=== PATIENT | female | born 1980 | race Hispanic/Latino ===

== ENCOUNTER 2025-03-18 17:14 | Emergency (ER) | payer SELFPAY ==
--- NOTE | ~2025-03-18 | CT_ITS ---
CT abdomen pelvis w con INDICATION:RUQ pain . COMPARISON: None. TECHNIQUE: Axial images of the abdomen and pelvis were obtained following infusion of 100 mL Isovue 300. Dose optimization technique was utilized. FINDINGS: The lung bases are clear. The liver parenchyma is unremarkable. No intrahepatic mass or ductal dilatation is evident. Gallbladder is filled with stones. There is a stone within the distal common bowel duct. The pancreas and spleen are normal in appearance. The adrenal glands are symmetric in size. The kidneys demonstrate symmetric uptake and excretion of contrast. No cystic mass is evident. There is no solid mass. There is no hydronephrosis. Evaluation of the stomach and bowel loops are limited due to lack of oral contrast. There are no bowel obstruction. The appendix is normal in appearance. There is colonic diverticulosis without evidence of acute diverticulitis. The bladder and rectum are normal. No free intraperitoneal fluid or air is evident. There is no significant retroperitoneal lymphadenopathy. The aorta, visceral vessels and renal arteries demonstrate normal caliber and patency. The lower thoracic and lumbar vertebrae are in normal alignment. IMPRESSION: Cholelithiasis and choledocholithiasis. Colonic diverticulosis without evidence of acute diverticulitis. All CT scans at this facility are performed using low dose modulation techniques as appropriate to perform exam including the following: automated exposure control; use of iterative reconstruction technique; adjustment of the mA and/or kV according to patient size (this includes techniques or standardized protocols for targeted exams where dose is matched to indication/reason for exam). Reviewed, dictated and finalized at location [facility] IMPRESSION: Cholelithiasis and choledocholithiasis. Colonic diverticulosis without evidence of acute diverticulitis. All CT scans at this facility are performed using low dose modulation techniqu es as appropriate to perform exam including the following: automated exposure c ontrol; use of iterative reconstruction technique; adjustment of the mA and/or kV according to patient size (this includes techniques or standardized protocol s for targeted exams where dose is matched to indication/reason for exam).
[2025-03-18 17:15] VITALS: BP 136/88; PULSE 98; RESP 16; TEMP 36.4; O2SAT 99
--- OUTSIDE RECORDS SUMMARY | 2025-03-18 18:18 | XMS_ITS | Clinical Summary ---
Author Organization [facility] Address [address] [place] [address] Care Team Providers Care Licensed Guide Name Role Phone Brenden Chacon MD Primary Care Provider [phone] Source Comments [facility],non-owned Affiliates and Associated Physician Practices is amultiple site organization consisting of ambulatory clinics and hospital sitesin [place], [place], [place] and [place]. This disclosure is being madepursuant to the Care Everywhere program and may not contain all information available regarding this patient. Last updated 17.[facility] Allergies No known active allergies Medications * This document contains information received from the source organization and may not represent a complete record from that organization. * Be aware that medications may not be up to date on this document. Alwaysverify current medications with the patient. blood glucose (ONETOUCH VERIO) test strip Use 1 strip 5 times daily Dx code: 024.419. Will submit PA for additional supplies. 150 strip 2 9 Active Vit-Fe Fumarate-FA ( VITAMIN WITH IRON) tabletIndicati ons: Take 1 tablet by mouth once daily Reasons: Active aspirin EC (ECOTRIN) 81 MG tabletIndicati ons:Preeclamps ia Take 81 mg by mouth once daily Reasons: Increased Blood Pressure and Edema During Active cyanocobalamin (VITAMIN B-12) injection Inject 1,000 mcg into muscle every 30 days Active progesterone micronized (PROMETRIUM) 100 MG capsule Take 100 mg by mouth 2 times daily Active folic acid (FOLVITE) 1 MG tabletIndicati ons:Neural Tube Defect Take 1 mg by mouth once daily Reasons: Defects of the Neural Tube Active calcium-vitami n D (OS-JOSEPH 500 + D) 500-200 mg-unit tablet Take 1 tablet by mouth once daily Active BASAGLAR KWIKPEN (BASAGLAR) pen Inject 10-30 Units subcutaneously daily before breakfast Start with 10 units. Increase as directed. 1 Box 2 9 Active Insulin Pen Needle 32G X 4 MM MISC Use 1 Each once daily 100 Each 2 9 Active metFORMIN ER 24hr (GLUCOPHAGE XR) 500 MG tablet Take 2 tablets by mouth 2 times daily after meals 120 tablet 2 9 Active Insulin Lispro (ADMELOG SOLOSTAR) 100 UNIT/ML Inject 4-15 Units subcutaneously daily before breakfast 2 Pen 2 9 Active glucagon (GLUCAGON EMERGENCY) injection Inject 1 mg subcutaneously as needed 1 kit 1 9 Active Active Problems Problem Noted Date Diagnosed Date History of multiple miscarriages 12/12/2018 Assessment & Plan (12/12/2018 1:31 PM CDT): History of 3 first trimester SABs. Declines APLAS work up, states she will have a BTL after this . Supervision of high-risk of elderly mu ltigravida 12/11/2018 Overview (12/12/2018): Dating: LMP: 05/01/18 c/w 11w6d U/S w/CRL of 46.69mm, giving LEANDRA-->02/05/19 summary: A+/Imm/-/-; HIV and HCV NR Antibody screen: negative HSV IGG 2: negative 06/2018 pap: NILM, HPV negative 1st trimester Low TSH level 12/11/2018 Overview (12/19/2018): 06/28: 0.297 12/13/18: TSH 0.84, free T4 0.8 Assessment & Plan (12/26/2018 12:13 PM CDT): 06/28/18: TSH: 0.297 12/13/18: TSH 0.84, free T4 0.8 Plan: No need for further evaluation at this time given normal thyroid function in the 3rd trimester. Assessment & Plan (12/12/2018 11:18 AM CDT): 06/28: 0.297 Plan: Reviewed expected TSH suppression in the first trimester Sent with labs today for repeat TSH and fT4 Gestational diabetes mellitus (GDM), antepartum 12/04/2018 Overview (01/02/2019): 3-hour 98/165/197/150 Hemoglobin A1C: 5.4%, no date available on PN record Risk factors: AMA, Father with T2 DM, Race, Hx GDM in 2 previous pregnancies Assessment & Plan (01/23/2019 2:55 PM CDT): Last growth today: formal report to follow, preliminary report shows overall weight <4500 grams AC remains accelerated Glucose values today show optimal glycemic control with medication and dietary recommendations that Radha is following quite well Reassuring testing Plan: 4 times daily blood sugars and glucose logs Twice weekly nonstress tests she has already begun with OB; also doing weekly BPP per Activity Aid's recommendations Serial growth every 4 weeks with last assessment at 38 weeks for mode of delivery, completed today and vaginal delivery can be supported Twice daily kick counts Continue Metformin 1000mg BID Instructed to take Metformin at beginning or middle of meal to avoid reflux after full meal, if not helpful can reduce to only 500mg at night and continue the 1000mg in the morning Continue Lantus 12 units in the morning Continue Ademlog 6 units with breakfast Instructed to only give Admelog if planning to eat Report any hypoglycemic episodes to us, after hours information given today Encouraged to continue to eat carbs and not strictly avoid Delivery initiation between 39-40 weeks Reiterated need for Diabetes testing 4-5 weeks after delivery with review at 6 week visit Encouraged to find primary care physician and her lifetime risk of type 2 diabetes Surveillance for preeclampsia Assessment & Plan (01/16/2019 3:11 PM CDT): Last growth assessment with accelerated abdominal circumference, >99% 01/02 Hyperglycemia noted after breakfast, fasting glucoses with some elevations Following great diet No hypoglycemia Plan: 4 times daily blood sugars and glucose logs Twice weekly nonstress tests she has already begun with OB; also doing weekly BPP [place] was called to day to confirm that she could have a BPP Monday with her NST And they confirmed she is scheduled Serial growth every 4 weeks with last assessment at 38 weeks for mode of delivery: next week Twice daily kick counts Continue Metformin 1000mg BID Increase Lantus to 12 units in the morning Increase Ademlog to 6 units with breakfast Reminded to only give Admelog if planning to eat Report any hypoglycemic episodes to us, after hours information given today Encouraged to continue to eat carbs and not strictly avoid Delivery initiation between 39-40 weeks Diabetes testing 4-5 weeks after delivery with review at 6 week visit Ongoing surveillance for preeclampsia Assessment & Plan (12/26/2018 12:24 PM CDT): Last growth assessment: EFW: 1834gm, 51%; AC: 91% Hyperglycemia noted after breakfast, fasting glucoses are improving Plan: 4 times daily blood sugars and glucose logs Twice weekly nonstress tests she has already begun with OB; also doing weekly BPP Serial growth every 4 weeks with last assessment at 38 weeks for mode of delivery Twice daily kick counts Continue Metformin titration to 1000mg BID Continue Lantus 10 units in the morning Start Ademlog 4 units with breakfast Instructed to only give Admelog if planning to eat Report any hypoglycemic episodes to us, after hours information given today Encouraged to continue to eat carbs and not strictly avoid Delivery initiation between 39-40 weeks Diabetes testing 4-5 weeks after delivery with review at 6 week visit Surveillance for preeclampsia, symptoms reviewed again today Assessment & Plan (12/12/2018 1:28 PM CDT): Last growth on 12/07: EFW 51%, 1834g, AC:91% Glucose values today are in decent range Currently limiting carbs, and counseled to increase today Likely will need insulin as she increases her carbohydrates with meals Plan: 4 times daily blood sugars and glucose logs Twice weekly nonstress tests she has already begun with OB Serial growth every 4 weeks with last assessment at 38 weeks for mode of delivery Twice daily kick counts Metformin to be initiated today, after 3 days add to breakfast Encouraged to increase carbs with meals, and add snacks with carb and protein Delivery initiation between 39-40 weeks Diabetes testing 4-5 weeks after delivery with review at 6 week visit Surveillance for preeclampsia Heterozygous for MTHFR gene mutation 12/04/2018 Overview (12/05/2018): C677T Sickle cell trait 12/04/2018 Assessment & Plan (12/12/2018 11:18 AM CDT): Recommend urine cultures every trimester, sent with order today. History of depression, currently preg nant 12/04/2018 Assessment & Plan (01/23/2019 2:32 PM CDT): Mood appropriate today, continue to monitor closely in the PP period. Assessment & Plan (12/26/2018 12:25 PM CDT): Reports to me today that her mood is going well and her coping is positive. She stopped working but has support from an older daughter who is working. Antepartum multigravida of advanced maternal age 0508/17/2018 Overview (12/12/2018): Positive AFP screen for down syndrome, NIPT of maternity 21: negative, female Assessment & Plan (12/12/2018 1:30 PM CDT): Positive AFP screen for down syndrome, NIPT of maternity 21: negative, female. She declined further diagnostic evaluation. Plan: testing indicated given age 38, patient reports already doing twice weekly NSTs and weekly BPP with her Activity Aid. Resolved Problems Problem Noted Date Diagnosed Date Resolved Date Breech presentation with problem 12/26/2018 01/16/2019 Assessment & Plan (12/26/2018 12:12 PM CDT): Interested in version if fetus remains breech. Encouraged to discuss with primary laminating machine operator helper. Anxiety and depression 12/04/201812/12 Family History Medical History Relation Name Comments Hypertension Father Diabetes - Type 2 Maternal Grandfather Cancer - Breast Maternal Grandmother Relation Name Status Comments Father Maternal Grandfather Maternal Grandmother Social History Tobacco Use Types Packs/Day Years Used Date Smoking Tobacco: Never Smokeless Tobacco: Never Alcohol Use Standard Drinks/Week Comments Not Currently 0 (1 standard drink = 0.6 oz pur e alcohol) AUDIT-C Answer Date Recorded Frequency of Alcohol Consumption Never 12/12/2018 Average Number of Drinks Not on file 019 Frequency of Binge Drinking Not on file 12/02 Comments No Sex and Gender Information Value Date Recorded Sex Assigned at Not on file 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 Gender Identity Not on file Sexual Orientation Not on file Last Filed Vital Signs Vital Sign Reading Time Taken Comments Blood Pressure 93/58 01/23/2019 1:27 PM CDT Pulse 93 01/23/2019 1:27 PM CDT Temperature - - Respiratory Rate - - Oxygen Saturation - - Inhaled Oxygen Concentration - - Weight 87.4 kg (192 lb 9.6 oz) 01/23/2019 1:27 P M CDT Height 157.5 cm (5' 2) 12/12/2018 10:33 AM CDT Body Mass Index 35.23 12/12/2018 10:33 AM CDT Plan of Treatment Health Maintenance Due Date Last Done Comments COLOGUARD (AGES 45-75) - COL ON CA SCREENING 1978 COLON MONITORING 1978 COLONOSCOPY - COLON CA SCREENING 1978 CT COLONOGRAPHY - COLON CA SCREENING 1978 Colorectal Cancer Screening 1978 FIT - COLON CA SCREENING 1978 FLEX SIG - COLON CA SCREENING 1978 LIPID TESTING 1978 MAMMOGRAM 1978 HIV SCREENING 1993 HEPATITIS C SCREENING 04/18/1996 DTAP/TDAP/TD VACCINES (1 - Tdap) 1997 HEPATITIS B VACCINE (1 of 3 - 19+ 3-dose series) 1997 DEPRESSION SCREENING 04/03/2024 COVID-19 VACCINE (1 - 2024-2 6 season) 2024 INFLUENZA VACCINE (#1) 2024 ZOSTER VACCINE (1 of 2) 2028 HIB VACCINE Aged Out No longer eligi ble based on patient's age to complete this topic HPV VACCINE Aged Out No longer eligi ble based on patient's age to complete this topic MENINGOCOCCAL (Group B) VACC INE SHARED DECISION-MAKING Aged Out No longer eligibl e based on patient's age to complete this topic MENINGOCOCCAL GROUPS A/C/Y/W VACCINE Aged Out No longer eligible b ased on patient's age to complete this topic PNEUMOCOCCAL VACCINE Aged Out No long er eligible based on patient's age to complete this topic [place] [place] [address] MEDICAID [employer] [place] MED[place] - [place] MED[place] - [facility] MEDICAID - [place] Care Teams Licensed Guide Relationship Specialty Start Date End Date Brenden Chacon MD [address] [place] [address] PCP - General 05/08/18
[2025-03-18 20:11] VITALS: BP 113/67; PULSE 76; RESP 18; TEMP 36.7; O2SAT 98
[2025-03-18 20:15] LABS: Hematocrit 42.2 % (37.0-47.0); Hemoglobin 14.1 g/dL (12.0-15.0); Immature Granulocyte Percent A 0.2 % (0-0.5); Lymphocytes Absolute Auto 2.38 K/mm3 (0.9-3.2); Mean Corpuscular HGB Conc 33.4 g/dl (32-36); Mean Corpuscular Hemoglobin 28.5 pg (26-34); Mean Corpuscular Volume 85.3 fl (80-100); Nucleated Red Blood Cells Absolute Auto 0.000 K/mm3 (0.0-0.012); Nucleated Red Blood Cells Perc 0.0 % (0.0-0.2); Platelet Count Result 152 k/mm3 (150-375); Red Blood Count 4.95 M/mm3 (4.2-5.4); White Blood Count 6.6 K/mm3 (4.5-10.0)
[2025-03-18 20:16] LABS: Add Urine Microscopic? NO; Appearance Urine Clear (Clear); Glucose Urine UA Negative (Negative); Leukocyte Esterase Ur Negative LEU/UL (Negative); Nitrate Urine Negative (Negative); Specific Grav Ur 1.014 (1.001-1.035)
[2025-03-18 20:26] LABS: Alanine Aminotransferase 276 U/L (6-35); Albumin Level 4.5 g/dL (3.5-5.1); Alkaline Phosphatase 230 U/L (38-126); Anion Gap 8 mmol/L (4-12); Aspartate Amino Transferase 382 U/L (14-36); Bilirubin,Total 1.8 mg/dL (0.2-1.3); Blood Urea Nitrogen 10 mg/dL (7-17); Calcium 9.9 mg/dL (8.4-10.2); Carbon Dioxide 24 mmol/L (22-30); Chloride 107 mmol/L (98-107); Estimated CRCL calculation 91 ml/min; Estimated Glomerular Filt Rate > 60; Glucose 117 mg/dL (65-110); Lipase 99 U/L (23-300); Potassium 4.3 mmol/L (3.4-5.0); Sodium 139 mmol/L (137-145); Total Protein 9.0 g/dL (6.3-8.2)
[2025-03-18] MEDS: ACETAMINOPHEN 500 MG TABLET 1000 MG PO (20:55)
[2025-03-18 21:01] LABS: BEDSIDEPREGUCG Negative (Negative)
[2025-03-18 21:44] VITALS: BP 102/67; PULSE 73; RESP 18; TEMP 36.6; O2SAT 96
--- NOTE | 2025-03-18 22:16 | ED.ABDPAIN ---
HPI - Abdominal Pain General Chief Complaint: Abdominal Pain Stated Complaint: RUQ PAIN Time Seen by Provider: 03/18/25 19:31 History of Present Illness HPI narrative: 44-year-old [place]er-speaking female presenting with concerns for right upper quadrant abdominal pain that has been ongoing for the last couple months. Patient states the pain gets worse with meals and has gotten increasingly worse recently. She does report a history of cholelithiasis. Denies nausea/vomiting/diarrhea, fevers/chills, chest pain/shortness of breath, or any history of trauma. Related Data Allergies Allergy/AdvReac Type Severity Reaction Status Date / Time No Known Allergies Allergy Verified 03/18/25 17:17 Review of Systems Review of Systems: All systems reviewed & are unremarkable except as noted in HPI and below Exam Narrative: GENERAL: No acute distress. HEAD: Normocephalic, atraumatic. EYES: PERRLA and EOMI. ENT: Nares clear, no rhinorrhea or epistaxis. Mucous membranes moist. Oropharynx without tonsillar hypertrophy exudate or other lesions. Bilateral TMs pearly horowitz non-bulging NECK: Supple. No adenopathy or masses. No carotid bruits or JVD CHEST: Clear to auscultation. No respiratory distress. No wheezes rales or rhonchi HEART: Regular rate and rhythm. No murmur heard. Normal peripheral pulses. ABDOMEN: Soft, nondistended, normal active bowel sounds. RUQ TTP. EXTREMITIES: Normal range of motion. No edema. SKIN: Warm, dry, no rash. NEURO: No focal deficits. Alert and oriented x3. PSYCH: Normal mood and affect Course Vital Signs Vital signs: Vital Signs Temperature 97.6 F 03/18/25 17:15 Pulse Rate 98 03/18/25 17:15 Respiratory Rate 16 03/18/25 17:15 Blood Pressure 136/88 03/18/25 17:15 Pulse Oximetry 99 03/18/25 17:15 Temperature 97.8 F 03/18/25 21:44 Pulse Rate 73 03/18/25 21:44 Respiratory Rate 18 03/18/25 21:44 Blood Pressure 102/67 03/18/25 21:44 Pulse Oximetry 96 03/18/25 21:44 Oxygen Delivery Room Air 03/18/25 20:11 [facility] Narrative Medical decision making narrative: 44-year-old [place]er-speaking female presenting with concerns for right upper quadrant abdominal pain that has been ongoing for the last couple months. Patient states the pain gets worse with meals and has gotten increasingly worse recently. She does report a history of cholelithiasis. Denies nausea/vomiting/diarrhea, fevers/chills, chest pain/shortness of breath, or any history of trauma. Upon my initial assessment patient appears nontoxic with stable vitals including no fevers. Imaging demonstrates cholelithiasis and choledocholithiasis without signs of cholecystitis. Labs are consistent with these findings with increased LFTs. CBC without leukocytosis or other significant high risk changes. Patient's abdomen is soft without significant pain or signs of surgical abdomen on serial exams. Lab and CT evaluations are reviewed and patient is felt to be a reasonable candidate for outpatient management. Discussed the findings with the patient and need for follow-up with general surgery for further workup and treatment. Patient was instructed as to limitations of CT and laboratory evaluation and encouraged to follow with PCP for other general concerns. Given reasons to return to the ED. Differential Diagnosis Differential Diagnosis: Differential diagnostic considerations for acute abdominal pain include surgical abdominal etiology, ischemic bowel, inflammatory bowel disease, gastritis, PUD, gastroenteritis, cardiac etiology, appendicitis, diverticulitis, bowel obstruction, kidney stone, pyelonephritis, abdominal aortic aneurysm, pancreatitis, constipation, endometriosis. Medical Records I have reviewed the following patient records and this information was taken into consideration when formulating the assessment and plan.: previous labs Lab Data MDM Lab Attestation statement: I personally reviewed the patient's lab results. 03/18/25 20:04 03/18/25 20:04 Labs: Lab Results 03/18/25 03/18/25 Range/Units 20:04 20:11 WBC 6.6 (4.5-10.0) K/mm3 RBC 4.95 (4.2-5.4) M/mm3 Hgb 14.1 (12.0-15.0) g/dL Hct 42.2 (37.0-47.0) % MCV 85.3 (80-100) fl MCH 28.5 (26-34) pg MCHC 33.4 (32-36) g/dl RDW 14.4 (11.5-14.5) % Plt Count 152 (150-375) k/mm3 MPV 12.3 H (7.4-10.4) fl Immature Gran % (Auto) 0.2 (0-0.5) % Neut % (Auto) 55.4 (45.5-73.1) % Lymph % (Auto) 36.3 (18.3-44.2) % Wharton % (Auto) 7.2 (2.6-8.5) % Eos % (Auto) 0.6 (0-4.4) % Baso % (Auto) 0.3 (0.2-1.2) % Lymph # (Auto) 2.38 (0.9-3.2) K/mm3 Wharton # (Auto) 0.5 (0.1-0.6) K/mm3 Eos # (Auto) 0.0 (0-0.3) K/mm3 Baso # (Auto) 0.0 (0.0-0.1) K/mm3 Abs Immat Gran (auto) 0.01 (0.00-0.031) K/mm3 Absolute Neuts (auto) 3.6 (1.3-6.7) K/mm3 Absolute Nucleated RBC 0.000 (0.0-0.012) K/mm3 Nucleated RBC % 0.0 (0.0-0.2) % Sodium 139 (137-145) mmol/L Potassium 4.3 (3.4-5.0) mmol/L Chloride 107 (98-107) mmol/L Carbon Dioxide 24 (22-30) mmol/L Anion Gap 8 (4-12) mmol/L BUN 10 (7-17) mg/dL Creatinine 0.63 L (0.7-1.0) mg/dL Estim Creat Clear Calc 91 ml/min Estimated GFR > 60 (59 - ) Glucose 117 H (65-110) mg/dL Calcium 9.9 (8.4-10.2) mg/dL Total Bilirubin 1.8 H (0.2-1.3) mg/dL AST 382 H (14-36) U/L ALT 276 H (6-35) U/L Alkaline Phosphatase 230 H (38-126) U/L Total Protein 9.0 H (6.3-8.2) g/dL Albumin 4.5 (3.5-5.1) g/dL Lipase 99 (23-300) U/L Urine Color Yellow (Yellow) Urine Appearance Clear (Clear) Urine pH 7.0 (5.0-9.0) Ur Specific Lizella 1.014 (1.001-1.035) Urine Protein Negative (Negative) mg/dL Urine Glucose (UA) Negative (Negative) mg/dL Urine Ketones Negative (Negative) mg/dL Ur Blood (Man) Negative (Negative) Urine Nitrate Negative (Negative) Urine Bilirubin Negative (Negative) Urine Urobilinogen 1.0 (<2.0) mg/dL Leukocyte Esterase Rfl Negative (Negative) TANNER/UL POC Urine HCG, Qual Negative (Negative) Imaging Data Attestation: I personally reviewed and interpreted this imaging study as follows: Radiologist's impression: ITS Impressions Abdomen/Pelvis CT 03/18/25 21:05 IMPRESSION: Cholelithiasis and choledocholithiasis. Colonic diverticulosis without evidence of acute diverticulitis. All CT scans at this facility are performed using low dose modulation techniques as appropriate to perform exam including the following: automated exposure control; use of iterative reconstruction technique; adjustment of the mA and/or kV according to patient size (this includes techniques or standardized protocols for targeted exams where dose is matched to indication/reason for exam). Discharge Plan Discharge Clinical Impression: Biliary colic, Cholelithiasis, Choledocholithiasis Patient Disposition: Home Condition: Stable Instructions: Antibiotic Form, Biliary Colic (ED), Gallstones (ED) Additional Instructions: Research best low fat diets for gallstones. Follow-up with the general surgeon to discuss future steps. Take anti-inflammatories (Aleve, Ibuprofen, Naproxen, etc) and Tylenol as needed for pain. Return to the ER if you experience fever, abdominal pain with nausea and vomiting, you are unable to keep down liquids or solids, blood in the stool, pain or burning with urination, blood in the urine or any other symptoms that are concerning to you. Follow-up with primary care provider for other general concerns. Primary care referral also provided. Patient Language: [place] Follow-up/Referrals: PHYSICIAN,WOODWORKING BELT SANDER [Primary Care Provider, Internal Medicine] Hiren Couch MD [Physician, Family Practice] Brett Reddy DO [Physician, General Surgery]
== END 2025-03-18 21:46 | disposition home or self-care (01) ==
PROVIDERS: Student in an Organized Health Care Education/Training Program
DX: K80.70 Calculus of gallbladder and bile duct without cholecystitis without obstruction (principal); K57.90 Diverticulosis of intestine, part unspecified, without perforation or abscess without bleeding
CPT/HCPCS: 36415; 74177; 80053; 81003; 81025; 83690; 85025; 99284; A9270; Q9967